=== PATIENT | female | born 1955 | race Caucasian/White ===

== ENCOUNTER 2019-11-03 13:49 | Observation (INO) | payer MEDICARE, MEDICAID ==
[~2019-11-03] VITALS: Ht 165.1 cm; Wt 78.0 kg
[~2019-11-03 13:49] MED LIST: AZI25OT PO; LORA10TA65 PO; NAPR-56 PO; TAM75C PO
[2019-11-03] MEDS ORDERED: aspirin 81mg tab.chew PO ONE (13:55)
[2019-11-03 14:10] LABS: BASOPHILS # (AUTO) 0.1 X10'3 (0-0.2); BASOPHILS % (AUTO) 1.3 % (0-1); EOSINOPHILS # (AUTO) 0.1 X10'3 (0-0.9); EOSINOPHILS % (AUTO) 1.3 % (0-6); HEMOGLOBIN 14.5 g/dl (12.0-16.0); LYMPHOCYTES # (AUTO) 2.3 X10'3 (1.1-4.8); LYMPHOCYTES % (AUTO) 37.2 % (21-51); MEAN CORPUSCULAR HGB CONC 33.8 g/dL (33.0-36.5); MEAN CORPUSCULAR VOLUME 91.8 FL (78-98); MEAN PLATELET VOLUME 7.9 FL (7.4-10.4); MONOCYTES # (AUTO) 0.5 X10'3 (0-0.9); MONOCYTES % (AUTO) 7.4 % (2-12); NEUTROPHILS # (AUTO) 3.3 X10'3 (1.8-7.7); NEUTROPHILS % (AUTO) 52.8 % (42-75); PLATELET COUNT 296 X10'3 (140-440); RED BLOOD COUNT 4.69 X10'6 (4.20-5.60); RED CELL DISTRIBUTION WIDTH 13.5 % (11.5-14.5); WHITE BLOOD COUNT 6.2 X10'3 (4.5-11.0)
[2019-11-03 14:28] LABS: ALANINE AMINOTRANSFERASE 62 U/L (12-78); ALBUMIN 3.7 G/DL (3.4-5.0); ALBUMIN/GLOBULIN RATIO 1.4 (1.1-1.5); ALKALINE PHOSPHATASE 103 IU/L (46-116); ANION GAP 7 (8-16); ASPARTATE AMINO TRANSFERASE 30 U/L (10-37); BILIRUBIN,TOTAL 0.3 MG/DL (0.1-1.0); BLOOD UREA NITROGEN 15 MG/DL (7-18); BUN/CREATININE RATIO 15.6 (6.6-38.0); CALCIUM 8.9 MG/DL (8.5-10.1); CHLORIDE 108 MMOL/L (99-107); CREATININE 0.96 MG/DL (0.40-0.90); GLUCOSE 126 MG/DL (70-104); SODIUM 143 MMOL/L (135-145); TOTAL CARBON DIOXIDE 27.8 MMOL/L (24-32); TOTAL PROTEIN 6.4 G/DL (6.4-8.2); eGFR 59 ML/MIN
[2019-11-03] MEDS ORDERED: magnesium 2GM in 50ml NS 50 ML IV PRN (14:50)
[2019-11-03] MEDS ORDERED: aminophylline 250mg/10ml inj. IV PRN (14:50)
[2019-11-03] MEDS ORDERED: magnesium 4gm in 100ml NS 100 ML IV PRN (14:50)
[2019-11-03] MEDS ORDERED: acetaminophen 325mg tablet PO PRN (14:50)
[2019-11-03] MEDS ORDERED: morphine 2 MG/ML inj. syringe IV PRN ×2 (14:50)
[2019-11-03] MEDS ORDERED: nitroGLYCERIN 0.4mg SUBLingual tab SL PRN ×2 (14:50)
[2019-11-03] MEDS ORDERED: magnesium hydroxide 30ml (MOM) UD suspension PO PRN (14:50)
[2019-11-03] MEDS ORDERED: regadenoson 0.4mg/5ml syringe IV ONE (14:50)
[2019-11-03] MEDS ORDERED: potassium Cl 20 mEq SR tablet PO PRN ×2 (14:50)
[2019-11-03] MEDS ORDERED: ondansetron/PF 4mg/2ml inj IV PRN (14:50)
[2019-11-03] MEDS ORDERED: mag hydrox/Alum hydrox/simeth 30ml oral suspension PO PRN (14:50)
[2019-11-03] MEDS ORDERED: potassium CL 10mEq/100ml bag 100 ML IV PRN ×2 (14:50)
[2019-11-03] MEDS ORDERED: magnesium Cl slow-release 64mg tablet PO PRN (14:50)
[2019-11-03] MEDS ORDERED: metoprolol tartrate 1mg/ml inj IV PRN (14:50)
[2019-11-03] MEDS ORDERED: OMEP40CA13 PO (15:00)
[2019-11-03] MEDS ORDERED: ATOR10TA PO (15:00)
[2019-11-03] MEDS ORDERED: ESCI10TA PO (15:00)
[2019-11-03] MEDS ORDERED: ASPI81TA52 PO (15:01)
[2019-11-03] MEDS: normal saline 1000ml 1,000 ML IV SCH (15:15)
[2019-11-03 15:18] LABS: HEMOGLOBIN A1C 6.1 % (4.5-6.2)
--- NOTE | 2019-11-03 17:19 | NUR ---
Patient in room PCU 3021. I have received report from Aliza WU and had the opportunity to ask questions and assume patient care at 1719, vital signs obtained, placed on tele, 2 RN skin check completed.
[2019-11-03 17:30] VITALS: BP 133/72
--- NOTE | 2019-11-03 17:31 | NUR ---
Patient denies having chest pain currently, oriented to new environment, MD at bedside. Will continue to monitor closely.
--- NOTE | 2019-11-03 18:27 | NUR ---
Problems reprioritized. Patient report given, questions answered & plan of care reviewed with Peter WU.
[2019-11-03 18:59] VITALS: BP 122/75
--- NOTE | 2019-11-03 19:00 | NUR ---
Patient in room PCU 3021. I have received report from BRYCE Bell and had the opportunity to ask questions and assume patient care. Patient awake and on telephone with family member during bedside report. Patient on room air and saline locked at this time. Will continue to monitor closely.
[2019-11-03] MEDS: K and/or MAG REPLACEMENT MC SCH (20:00)
[2019-11-03] MEDS ORDERED: temazepam 15mg capsule PO PRN (21:00)
[2019-11-03] MEDS: heparin, porcine 5000 units/ml vial SQ SCH (21:04)
[2019-11-03 23:00] VITALS: BP 94/49
[2019-11-04] VITALS (11 sets, daily range): BP systolic 105–145; BP diastolic 57–76
[2019-11-04] MEDS: normal saline 1000ml 1,000 ML IV SCH ×2 (00:50→11:14)
[2019-11-04 02:03] LABS: BASOPHILS # (AUTO) 0.1 X10'3 (0-0.2); BASOPHILS % (AUTO) 1.4 % (0-1); EOSINOPHILS # (AUTO) 0.1 X10'3 (0-0.9); EOSINOPHILS % (AUTO) 1.6 % (0-6); HEMATOCRIT 42.4 % (35.0-45.0); HEMOGLOBIN 14.2 g/dl (12.0-16.0); LYMPHOCYTES # (AUTO) 3.2 X10'3 (1.1-4.8); LYMPHOCYTES % (AUTO) 53.8 % (21-51); MEAN CORPUSCULAR HEMOGLOBIN 30.8 PG (27.0-31.0); MEAN CORPUSCULAR HGB CONC 33.4 g/dL (33.0-36.5); MEAN CORPUSCULAR VOLUME 92.2 FL (78-98); MEAN PLATELET VOLUME 8.1 FL (7.4-10.4); MONOCYTES # (AUTO) 0.4 X10'3 (0-0.9); MONOCYTES % (AUTO) 7.3 % (2-12); NEUTROPHILS # (AUTO) 2.2 X10'3 (1.8-7.7); NEUTROPHILS % (AUTO) 35.9 % (42-75); PLATELET COUNT 285 X10'3 (140-440); RED BLOOD COUNT 4.59 X10'6 (4.20-5.60); RED CELL DISTRIBUTION WIDTH 13.2 % (11.5-14.5)
[2019-11-04 02:15] LABS: ALANINE AMINOTRANSFERASE 56 U/L (12-78); ALBUMIN 3.3 G/DL (3.4-5.0); ALBUMIN/GLOBULIN RATIO 1.3 (1.1-1.5); ALKALINE PHOSPHATASE 93 IU/L (46-116); ANION GAP 7 (8-16); ASPARTATE AMINO TRANSFERASE 25 U/L (10-37); BILIRUBIN,TOTAL 0.2 MG/DL (0.1-1.0); BLOOD UREA NITROGEN 17 MG/DL (7-18); BUN/CREATININE RATIO 19.5 (6.6-38.0); CALCIUM 8.3 MG/DL (8.5-10.1); CHLORIDE 110 MMOL/L (99-107); CREATININE 0.87 MG/DL (0.40-0.90); GLUCOSE 98 MG/DL (70-104); POTASSIUM 3.9 MMOL/L (3.5-5.1); SODIUM 144 MMOL/L (135-145); TOTAL CARBON DIOXIDE 27.5 MMOL/L (24-32); TOTAL PROTEIN 5.9 G/DL (6.4-8.2); eGFR 66 ML/MIN
[2019-11-04 02:16] LABS: CHOL/HDL RATIO 4.1 (0.00-4.99); CHOLESTEROL 155 MG/DL (0-200); HDL CHOLESTEROL 38 MG/DL (35-60); LDL CHOLESTEROL 99 MG/DL (50-100); PHOSPHORUS 3.9 MG/DL (2.3-4.5); TRIGLYCERIDES 136 MG/DL (20-135)
[2019-11-04 04:17] LABS: TOTAL CELLS COUNTED 100
[2019-11-04 04:18] LABS: PLATELET ESTIMATE NORMAL
--- NOTE | 2019-11-04 06:03 | NUR ---
Problems reprioritized. Patient report given, questions answered & plan of care reviewed with BRYCE LANE and BRYCE YANG.
--- NOTE | 2019-11-04 06:11 | NUR ---
Patient in room PCU 3021. I have received report from Magalie WU and had the opportunity to ask questions and assume patient care.
[2019-11-04] MEDS: heparin, porcine 5000 units/ml vial SQ SCH (07:18)
[2019-11-04] MEDS ORDERED: pantoprazole 40mg Tablet.DR PO SCH (08:00)
[2019-11-04] MEDS ORDERED: loratadine 10mg tablet PO SCH (08:00)
[2019-11-04] MEDS ORDERED: ESCITALOPRAM OXALATE 5 MG TABLET PO SCH (08:00)
[2019-11-04] MEDS: K and/or MAG REPLACEMENT MC SCH (08:00)
[2019-11-04] MEDS ORDERED: atorvastatin 10mg tablet PO SCH (08:00)
[2019-11-04] MEDS ORDERED: aspirin 325mg tablet PO SCH (08:30)
--- NOTE | 2019-11-04 11:34 | NUR ---
PAGER ID: [phone] MESSAGE: [phone] Shira Das results in. Arabella WU [id number]
--- NOTE | 2019-11-04 12:43 | NUR ---
Patients sami scan was negative. MD cleared patient to discharge. Discharge instructions and medications reviewed with patient. All questions answered. PIV and tele still in place as the patient is waiting to find out when her ride will be able to pick her up. Will continue to monitor patient closely.
--- NOTE | 2019-11-04 13:02 | NUR ---
Patients ride has arrived, meds retrieved from pharmacy. Tele and PIV removed, patient left in stable condition.
--- NOTE | 2019-11-05 10:38 | NUR ---
Case Management DC follow up: LMVM post DC status, questions, concerns
== END 2019-11-04 13:11 | disposition home or self-care (01) ==
LOC: ER 13:50 → ED HOLD 14:50 → PCU 3S 17:16
PROVIDERS: ADMIT Family Medicine; ATTEND Family Medicine
DX: I24.9 Acute ischemic heart disease, unspecified (principal); I25.119 Atherosclerotic heart disease of native coronary artery with unspecified angina pectoris; E78.5 Hyperlipidemia, unspecified; F32.9 Major depressive disorder, single episode, unspecified; I25.2 Old myocardial infarction; N17.9 Acute kidney failure, unspecified; Z87.891 Personal history of nicotine dependence; Z86.32 Personal history of gestational diabetes; Z79.82 Long term (current) use of aspirin; Z79.899 Other long term (current) drug therapy; Z88.2 Allergy status to sulfonamides; Z88.8 Allergy status to other drugs, medicaments and biological substances
CPT/HCPCS: 36415; 71045; 78452; 80053; 80061; 83036; 83735; 83880; 84100; 84484; 85025; 85610; 87081; 93005; 93017; 93306; 96372; 99285; A9500; G0378; J1644; J2785; J7030